=== PATIENT | male | born 1960 | race Caucasian/White ===

== ENCOUNTER → 2018-03-15 | Outpatient (CLI) | payer OTHER ==
[2018-03-15 15:34] LABS: Alanine Aminotransfer (ALT/SGP 61 U/L (12-78); Albumin, Blood 3.4 g/dL (3.4-5.0); Alk Phos 56 U/L (50-136); Anion Gap 11 mmol/L (6-16); Aspartate Aminotrans (AST/SGOT 20 U/L (12-37); Bilirubin, Total 0.4 mg/dL (0.1-1.0); Blood Urea Nitrogen 28 mg/dL (8-24); Bun/Creatinine Ratio 31.5 (12.0-20.0); CO2, Blood 24 mmol/L (21-32); Calcium, Blood 8.7 mg/dL (8.5-10.1); Chloride, Blood 105 mmol/L (98-108); Creatinine, Blood 0.89 mg/dL (0.60-1.20); Globulin, Blood 3.4 g/dL (2.2-4.0); Glomerular Filtration Rate >60 (60-); Glucose, Blood 111 mg/dL (70-99); Potassium, Blood 4.4 mmol/L (3.5-5.5); Sodium, Blood 140 mmol/L (136-145); Total Protein, Blood 6.8 g/dL (6.4-8.2)
== END | disposition home or self-care (01) ==
LOC: LAB 14:01 → LAB SHORT 14:01
PROVIDERS: Internal Medicine Hematology & Oncology
DX: C76.0 Malignant neoplasm of head, face and neck (principal)
CPT/HCPCS: 80053

== ENCOUNTER → 2018-06-19 | Outpatient (CLI) | payer BC | LOC: LAB 16:52 → LAB SHORT 16:52 | DX: R30.0 Dysuria (principal) | CPT/HCPCS: 87086 ==

== ENCOUNTER 2018-07-04 10:50 | Emergency (ER) | payer BC ==
[~2018-07-04] VITALS: Ht 180.3 cm; Wt 108.9 kg
[2018-07-04 11:52] LABS: BASOPHILS ABSOLUTE AUTO 0.02 K/mm3 (0.00-0.23); BASOPHILS PERCENT AUTO 0 % (0-2); EOSINOPHILS ABSOLUTE AUTO 0.14 K/mm3 (0.00-0.68); EOSINOPHILS PERCENT AUTO 1 % (0-6); Hematocrit 42.8 % (37.0-53.0); IMMATURE GRAN ABSOLUTE AUTO 0.09 K/mm3 (0.00-0.10); IMMATURE GRAN PERCENT AUTO 1 % (0-1); LYMPHOCYTES ABSOLUTE AUTO 1.86 K/mm3 (0.84-5.20); LYMPHOCYTES PERCENT AUTO 16 % (21-46); MONOCYTES PERCENT AUTO 6 % (4-13); Mean Corpuscular HGB 32.1 pg (26.0-34.0); Mean Corpuscular HGB Conc 32.7 g/dL (31.5-36.5); Mean Corpuscular Volume 98 fL (80-100); Mean Platelet Volume 11.1 fL (9.1-12.4); NEUTROPHILS ABSOLUTE AUTO 8.58 K/mm3 (1.96-9.15); NEUTROPHILS PERCENT AUTO 75 % (41-73); Platelet Count 204 K/mm3 (150-400); RDW Coefficient Variation 13.5 % (11.7-14.2); RDW Standard Deviation 48.9 fL (35.1-46.3); Red Blood Cell Count 4.36 M/mm3 (4.30-5.90); White Blood Cell Count 11.39 K/mm3 (4.00-11.30)
[2018-07-04 12:09] LABS: Alanine Aminotransfer (ALT/SGP 51 U/L (12-78); Albumin, Blood 3.2 g/dL (3.4-5.0); Albumin/Globulin Ratio 0.9 (0.8-1.8); Alk Phos 67 U/L (50-136); Anion Gap 7 mmol/L (6-16); Aspartate Aminotrans (AST/SGOT 26 U/L (12-37); Bilirubin, Total 0.4 mg/dL (0.1-1.0); Blood Urea Nitrogen 16 mg/dL (8-24); Bun/Creatinine Ratio 14.2 (12.0-20.0); CO2, Blood 27 mmol/L (21-32); Calcium, Blood 8.9 mg/dL (8.5-10.1); Chloride, Blood 107 mmol/L (98-108); Creatinine, Blood 1.13 mg/dL (0.60-1.20); Globulin, Blood 3.7 g/dL (2.2-4.0); Glomerular Filtration Rate >60 (60-); Glucose, Blood 90 mg/dL (70-99); Potassium, Blood 3.8 mmol/L (3.5-5.5); Sodium, Blood 141 mmol/L (136-145); Total Protein, Blood 6.9 g/dL (6.4-8.2)
== END 2018-07-04 15:24 | disposition left against medical advice (07) ==
LOC: ER 10:50
PROVIDERS: Physician Assistant
DX: Z53.21 Procedure and treatment not carried out due to patient leaving prior to being seen by health care provider (principal)
CPT/HCPCS: 36415; 71046; 80053; 85025

== ENCOUNTER → 2018-08-09 | Outpatient (CLI) | payer BC ==
[~2018-08-09] MED LIST: CIPR500 PO; GABA100 PO; Hydrocodone-Ap1 EA23 PO; LISI20 PO; Sulfamethoxazo1 EAC4 PO; TRAM50 PO
== END | disposition home or self-care (01) ==
LOC: LAB SHORT 10:00 → LAB 10:00 → LAB FUT 08-05 17:00 → EDSTATUS 08-05 17:00
DX: C71.9 Malignant neoplasm of brain, unspecified (principal); R42 Dizziness and giddiness
CPT/HCPCS: 87493

== ENCOUNTER → 2018-08-12 | Outpatient (CLI) | payer BC ==
[2018-08-12 18:13] LABS: Source, Urine Voided
[2018-08-12 18:33] LABS: Appearance, Urine Cloudy (Clear); Bilirubin, Urine Neg (Neg); Blood, Urine 4+ (Neg); Color, Urine Yellow (P-Yellow); Glucose Qualitative, Urine Neg (Neg); Ketones, Urine 1+ (Neg); Leukocyte Esterase, Urine 1+ (Neg); Nitrite, Urine Neg (Neg); Protein, Urine 3+ (Neg); Urobilinogen, Urine 1+ (Normal)
[2018-08-12 19:04] LABS: Amorphous Heavy (0-Heavy); Bacteria Few /hpf; Mucus Mod (0-Heavy); Red Blood Cells, Urine 50-100 /hpf (0-2); Squamous Epithelial Cells Mod /hpf (Few); White Blood Cells, Urine 25-50 /hpf (0-5)
== END | disposition home or self-care (01) ==
LOC: LAB 15:30 → LAB SHORT 15:30
PROVIDERS: Internal Medicine Hematology & Oncology
DX: R31.9 Hematuria, unspecified (principal)
CPT/HCPCS: 81001

== ENCOUNTER → 2018-09-15 | Outpatient (CLI) | payer BC ==
[~2018-09-15] MED LIST changes: +BUME2 PO; +DEXA4 PO; +OXYC5 PO; +POTA10T PO; +Prinivil10 MG PO
[2018-09-15 19:26] LABS: Alanine Aminotransfer (ALT/SGP 76 U/L (12-78); Albumin, Blood 2.9 g/dL (3.4-5.0); Albumin/Globulin Ratio 0.9 (0.8-1.8); Alk Phos 83 U/L (50-136); Anion Gap 6 mmol/L (6-16); Aspartate Aminotrans (AST/SGOT 26 U/L (12-37); Bilirubin, Total 0.5 mg/dL (0.1-1.0); Blood Urea Nitrogen 29 mg/dL (8-24); CO2, Blood 28 mmol/L (21-32); Calcium, Blood 8.7 mg/dL (8.5-10.1); Chloride, Blood 102 mmol/L (98-108); Creatinine, Blood 1.21 mg/dL (0.60-1.20); Globulin, Blood 3.2 g/dL (2.2-4.0); Glomerular Filtration Rate >60 (60-); Glucose, Blood 130 mg/dL (70-99); Potassium, Blood 3.8 mmol/L (3.5-5.5); Sodium, Blood 136 mmol/L (136-145); Total Protein, Blood 6.1 g/dL (6.4-8.2)
== END | disposition home or self-care (01) ==
LOC: LAB SHORT 18:04 → LAB 18:04
PROVIDERS: Internal Medicine Hematology & Oncology
DX: C76.0 Malignant neoplasm of head, face and neck (principal)
CPT/HCPCS: 80053

== ENCOUNTER 2018-09-17 18:58 | Inpatient (IN) | payer BC ==
[~2018-09-17] VITALS: Ht 180.3 cm; Wt 107.7 kg
[~2018-09-17 18:58] MED LIST changes: -BUME2 PO; -DEXA4 PO; -OXYC5 PO; -POTA10T PO; -Prinivil10 MG PO
[2018-09-17 19:33] LABS: BASOPHILS ABSOLUTE AUTO 0.05 K/mm3 (0.00-0.23); BASOPHILS PERCENT AUTO 0 % (0-2); EOSINOPHILS ABSOLUTE AUTO 0.01 K/mm3 (0.00-0.68); EOSINOPHILS PERCENT AUTO 0 % (0-6); Hematocrit 41.1 % (37.0-53.0); Hemoglobin 13.4 g/dL (13.5-17.5); IMMATURE GRAN ABSOLUTE AUTO 0.47 K/mm3 (0.00-0.10); IMMATURE GRAN PERCENT AUTO 2 % (0-1); LYMPHOCYTES ABSOLUTE AUTO 0.83 K/mm3 (0.84-5.20); LYMPHOCYTES PERCENT AUTO 4 % (21-46); MONOCYTES ABSOLUTE AUTO 0.36 K/mm3 (0.16-1.47); MONOCYTES PERCENT AUTO 2 % (4-13); Mean Corpuscular HGB 30.7 pg (26.0-34.0); Mean Corpuscular HGB Conc 32.6 g/dL (31.5-36.5); Mean Corpuscular Volume 94 fL (80-100); Mean Platelet Volume 11.3 fL (9.1-12.4); NEUTROPHILS ABSOLUTE AUTO 19.27 K/mm3 (1.96-9.15); NEUTROPHILS PERCENT AUTO 92 % (41-73); NRBC ABSOLUTE 0.04 K/mm3 (0.00-0.02); NRBC Auto 0.2 /100 WBC (0.0-0.2); Platelet Count 165 K/mm3 (150-400); RDW Coefficient Variation 16.8 % (11.7-14.2); Red Blood Cell Count 4.37 M/mm3 (4.30-5.90); White Blood Cell Count 20.99 K/mm3 (4.00-11.30)
[2018-09-17 19:55] LABS: Alanine Aminotransfer (ALT/SGP 59 U/L (12-78); Albumin, Blood 2.6 g/dL (3.4-5.0); Albumin/Globulin Ratio 0.6 (0.8-1.8); Alk Phos 93 U/L (50-136); Anion Gap 8 mmol/L (6-16); Aspartate Aminotrans (AST/SGOT 26 U/L (12-37); Bilirubin, Total 0.8 mg/dL (0.1-1.0); Blood Urea Nitrogen 21 mg/dL (8-24); Bun/Creatinine Ratio 15.6 (12.0-20.0); CO2, Blood 30 mmol/L (21-32); Calcium, Blood 10.2 mg/dL (8.5-10.1); Chloride, Blood 92 mmol/L (98-108); Creatinine, Blood 1.35 mg/dL (0.60-1.20); Globulin, Blood 4.7 g/dL (2.2-4.0); Glomerular Filtration Rate 57 (60-); Glucose, Blood 62 mg/dL (70-99); Sodium, Blood 130 mmol/L (136-145); Total Protein, Blood 7.3 g/dL (6.4-8.2); Troponin I <0.015 ng/mL (0.000-0.040)
[2018-09-17] MEDS ORDERED: POTA10T PO (20:03)
[2018-09-17] MEDS ORDERED: Prinivil10 MG PO (20:03)
[2018-09-17] MEDS ORDERED: BUME2 PO (20:03)
[2018-09-17] MEDS ORDERED: TRAM50 PO (20:04)
[2018-09-17] MEDS ORDERED: DEXA4 PO (20:04)
--- NOTE | 2018-09-17 23:45 | NUR ---
ASSUMPTION OF CARE: Pt arrived to the ICU @ 2335. Pt is alert and oriented with VSS, O2 93-94% on room air and HR sinus tach @ 101-112 and systolic BP of 173. Pt able to transfer self from ED bed to ICU bed. Noticable redness and edema to right leg extending from mid thigh to foot (See pictures). Leg is warm and painful to touch with blanching present. Edema noted to lower left leg. Peripheral IV x1 to RAC infusing NS and vanco. Diffuse bruising noted bilaterally to upper extremities and abdomen.
[2018-09-18] MEDS ORDERED: OXYC5 PO (00:05)
[2018-09-18 00:34] LABS: PCO2 Arterial 43.9 mmHg (35-45); PO2 Arterial 66.5 mmHg (80-100); pH Blood Arterial 7.44 (7.35-7.45)
[2018-09-18 00:59] LABS: Source, Urine Clean Catch
[2018-09-18 01:03] LABS: Appearance, Urine Hazy (Clear); Bilirubin, Urine Neg (Neg); Blood, Urine 5+ (Neg); Color, Urine Yellow (P-Yellow); Glucose Qualitative, Urine Neg (Neg); Ketones, Urine Neg (Neg); Leukocyte Esterase, Urine 2+ (Neg); Nitrite, Urine Pos (Neg); Protein, Urine 3+ (Neg); Specific Gravity, Urine 1.015 (1.003-1.022); Urobilinogen, Urine NORM (Normal); pH, Urine 6.5 (5.0-8.0)
[2018-09-18 01:10] LABS: Bacteria Many /hpf; Red Blood Cells, Urine 0-2 /hpf (0-2); Spermatozoa Rare /hpf; Squamous Epithelial Cells Not Seen /hpf (Few); White Blood Cells, Urine 50-100 /hpf (0-5)
[2018-09-18 01:11] LABS: Hyaline Casts 0-2 /lpf (0-2)
[2018-09-18 01:25] LABS: Creatinine, Urine Random 86.5 mg/dL (27.00-270.00)
[2018-09-18 04:45] LABS: International Normalized Ratio 1.01; Prothrombin Time Results 10.7 Sec (9.7-11.5)
[2018-09-18 04:48] LABS: Alanine Aminotransfer (ALT/SGP 45 U/L (12-78); Albumin/Globulin Ratio 0.5 (0.8-1.8); Alk Phos 77 U/L (50-136); Anion Gap 7 mmol/L (6-16); Aspartate Aminotrans (AST/SGOT 24 U/L (12-37); Bilirubin, Total 0.7 mg/dL (0.1-1.0); Blood Urea Nitrogen 19 mg/dL (8-24); Bun/Creatinine Ratio 19.6 (12.0-20.0); CO2, Blood 29 mmol/L (21-32); Calcium, Blood 8.7 mg/dL (8.5-10.1); Chloride, Blood 100 mmol/L (98-108); Creatinine, Blood 0.97 mg/dL (0.60-1.20); Globulin, Blood 3.7 g/dL (2.2-4.0); Glomerular Filtration Rate >60 (60-); Glucose, Blood 77 mg/dL (70-99); Potassium, Blood 3.3 mmol/L (3.5-5.5); Sodium, Blood 136 mmol/L (136-145); Total Protein, Blood 5.7 g/dL (6.4-8.2)
[2018-09-18 04:55] LABS: BASOPHILS ABSOLUTE AUTO 0.05 K/mm3 (0.00-0.23); BASOPHILS PERCENT AUTO 0 % (0-2); EOSINOPHILS ABSOLUTE AUTO 0.01 K/mm3 (0.00-0.68); EOSINOPHILS PERCENT AUTO 0 % (0-6); Hematocrit 34.9 % (37.0-53.0); Hemoglobin 11.3 g/dL (13.5-17.5); IMMATURE GRAN ABSOLUTE AUTO 0.69 K/mm3 (0.00-0.10); IMMATURE GRAN PERCENT AUTO 4 % (0-1); LYMPHOCYTES ABSOLUTE AUTO 0.67 K/mm3 (0.84-5.20); LYMPHOCYTES PERCENT AUTO 4 % (21-46); MONOCYTES ABSOLUTE AUTO 0.39 K/mm3 (0.16-1.47); MONOCYTES PERCENT AUTO 2 % (4-13); Mean Corpuscular HGB Conc 32.4 g/dL (31.5-36.5); Mean Corpuscular Volume 96 fL (80-100); NEUTROPHILS ABSOLUTE AUTO 17.22 K/mm3 (1.96-9.15); NEUTROPHILS PERCENT AUTO 91 % (41-73); NRBC ABSOLUTE 0.02 K/mm3 (0.00-0.02); NRBC Auto 0.1 /100 WBC (0.0-0.2); RDW Coefficient Variation 16.9 % (11.7-14.2); RDW Standard Deviation 59.4 fL (35.1-46.3); Red Blood Cell Count 3.64 M/mm3 (4.30-5.90); White Blood Cell Count 19.03 K/mm3 (4.00-11.30)
[2018-09-18 04:56] LABS: Mean Platelet Volume 11.6 fL (9.1-12.4); Platelet Count 113 K/mm3 (150-400)
[2018-09-18 05:24] LABS: Magnesium, Blood 1.9 mg/dL (1.6-2.4); Phosphorus, Blood 2.9 mg/dL (2.5-4.9)
--- NOTE | 2018-09-18 06:12 | NUR ---
SHIFT SUMMARY: Pt resting throughout night, arouses easily. Heart rate and rhythm remain sinus tach 100-110 with frequent PAC's and brief runs of SVT. Lower extremities remain unchanged with redness and edema to right leg and edema to left lower leg, photos on file in pts chart. Peripheral IV x2 remain patent and intact. Call placed to Dr. Baker at 0550 regarding pts potassium of 3.3 and heart rate/rhythm changes. Dr. Hilliard ordered 20 MEQ Potassium Chloride IV x1 and 5 mg metoprolol IV PRN. IV metoprolol has not been indicated as pt has not sustained an SVT rhythm.
--- NOTE | 2018-09-18 09:46 | NUR ---
PT AWAKE AND ALERT THIS AM AT 0720. PT C/O HEADACHE 6/10. PT STATES THIS IS CHRONIC D/T BRAIN TUMOR AND SALINA HAS PAIN LESS THAN 4-6/10. PT STATES RIGHT LEG PAIN IS AT A 0 UNLESS LEG IS MOVED, WITH MOVEMENT LEG PAIN IS 10/10. RIGHT LEG IS RED, WARM, SWOLLEN, PAINFUL TO THE TOUCH, AND WEEPING. LEG ASSESSED WITH NIGHT RN AT 0710. RIGHT LEG ELEVATED ON PILLOW. 1+ PULSES TO RIGHT DP/PT PRESENT. PT'S AT BEDSIDE. PT W SOME NAUSEA AND BELCHING AFTER BREAKFAST; ZOFRAN GIVEN. PT 1 PERSON ASSIST TO TOILET. PT WEAK AND UNSTEADY; PARTIALLY DUE TO SEVERE PAIN WITH MOVEMENT TO RIGHT LEG AND FOOT. PT IN SINUS TACH, BP SLIGHTLY HTN, SATS 96-98% ON RA. POWERGLIDE PLACED TO HEBER; PT TOLERATED WELL.
--- NOTE | 2018-09-18 10:54 | NUR ---
PT DRINKS APPROX 6 BEERS/DAY. PT LAST DRANK TWO DAYS AGO. HE STATES HE HAS NEVER EXPERIENCED SEVERE WITHDRAWALS. CIWA SCORE IS 0. PT EDUCATED ON WITHDRAWAL S/S, AND TO NOTIFY RN IF HE STARTS EXPERIENCES ANY. WILL MONITOR CIWA
--- NOTE | 2018-09-18 11:47 | NUR ---
echocardiogram completed
--- NOTE | 2018-09-18 14:24 | NUR ---
LEG REMAINS UNCHANGED AND ELEVATED ON PILLOW. PULSES REMAIN A FAINT +1. GOOD CAP REFILL. PT C/O CHRONIC HEADACHE PAIN 10/17, AND AN "ACHE" TO RIGHT LEG WITH PAIN COMPLAINTS ONLY W MOVEMENT. FENT 25MCG GIVEN. PT HYPERTENSIVE W SBP 160-[address] HENDERSONTRATE CALLED; WILL BE HERE SHORTLY TO SEE PT. PT HAS SLEPT FROM APPOX. 10-1430.
--- NOTE | 2018-09-18 16:19 | NUR ---
DR HENDERSONTRATE IN TO SEE PT. PAIN MEDS CHANGED TO DIALUDID, GIVEN W BETTER RESULTS. HYDRALAZINE IV PRN FOR HTN. PT NOW MEDICAL FLOOR STATUS NO TELE.
--- NOTE | 2018-09-18 16:39 | NUR ---
REPORT GIVEN TO MEDICAL FLOOR RN.
--- NOTE | 2018-09-18 18:25 | NUR ---
PT ARRIVED TO ROOM AND SETTLED IN TO BED AFTER BEING TRANSFERRED BY SLIDE SHEET AT 1705. RLE VERY SWOLLEN AND RED. AT BEDSIDE. ATE SUPPER WITH NO PROBLEM. WILL REPORT TO ONCOMING SHIFT.
--- NOTE | 2018-09-19 06:44 | NUR ---
SHIFT SUMMARY PT IS A 57 Y/O MALE, ADMITTED FOR SEPSIS R/T CELLULITIS IN HIS RLE. THE PT REPORTED PAIN IN HIS LEG, WELL A CHRONIC HEADACHE, FOR WHICH HE WAS MEDICATED WITH DILAUDID X 1 AND ULTRAM X 1. HE ALSO REPORTED SOME MILD NAUSEA DURING THE NIGHT, WHICH WAS RELIEVED WITH ZOFRAN. NO COMPLAINTS OF SOB. PT SLEPT WELL THROUGH THE NIGHT. VITALS REMAINED STABLE. NO OTHER ACUTE CHANGES IN PT CONDITION NOTED. WILL CONTINUE TO MONITOR AND TREAT PER EMAR UNTIL HAND OFF TO DAY SHIFT.
[2018-09-19 07:39] LABS: Hematocrit 34.3 % (37.0-53.0); Hemoglobin 10.8 g/dL (13.5-17.5); Mean Corpuscular HGB 29.9 pg (26.0-34.0); Mean Corpuscular HGB Conc 31.5 g/dL (31.5-36.5); Mean Corpuscular Volume 95 fL (80-100); Mean Platelet Volume 11.1 fL (9.1-12.4); NRBC ABSOLUTE 0.02 K/mm3 (0.00-0.02); NRBC Auto 0.1 /100 WBC (0.0-0.2); Platelet Count 132 K/mm3 (150-400); RDW Coefficient Variation 16.8 % (11.7-14.2); RDW Standard Deviation 58.6 fL (35.1-46.3); Red Blood Cell Count 3.61 M/mm3 (4.30-5.90); White Blood Cell Count 18.94 K/mm3 (4.00-11.30)
[2018-09-19 07:49] LABS: Alanine Aminotransfer (ALT/SGP 41 U/L (12-78); Albumin, Blood 1.7 g/dL (3.4-5.0); Albumin/Globulin Ratio 0.4 (0.8-1.8); Alk Phos 92 U/L (50-136); Anion Gap 6 mmol/L (6-16); Aspartate Aminotrans (AST/SGOT 23 U/L (12-37); Bilirubin, Total 0.4 mg/dL (0.1-1.0); Blood Urea Nitrogen 16 mg/dL (8-24); Bun/Creatinine Ratio 17.2 (12.0-20.0); CO2, Blood 30 mmol/L (21-32); Calcium, Blood 8.8 mg/dL (8.5-10.1); Chloride, Blood 102 mmol/L (98-108); Creatinine, Blood 0.93 mg/dL (0.60-1.20); Glomerular Filtration Rate >60 (60-); Glucose, Blood 79 mg/dL (70-99); Potassium, Blood 3.5 mmol/L (3.5-5.5); Sodium, Blood 138 mmol/L (136-145); Total Protein, Blood 5.7 g/dL (6.4-8.2)
[2018-09-19 09:06] LABS: BAND PERCENT MAN 8 % (0-8); BASOPHILS PERCENT MAN 0 % (0-2); EOSINOPHILS PERCENT MAN 0 % (0-6); LYMPHOCYTES PERCENT MAN 9 % (21-46); METAMYELOCYTE ABSOLUTE MAN 0.18 K/mm3 (0.00-0.00); METAMYELOCYTE PERCENT MAN 1 % (0-0); MONOCYTES ABSOLUTE MAN 0.56 K/mm3 (0.16-1.47); MONOCYTES PERCENT MAN 3 % (4-13); MYELOCYTE ABSOLUTE MAN 0.18 K/mm3 (0.00-0.00); MYELOCYTE PERCENT MAN 1 % (0-0); NEUTROPHILS ABSOLUTE MAN 16.28 K/mm3 (1.96-9.15); SEG NEUTROPHILS PERCENT MAN 78 % (41-73); TOTAL CELLS COUNTED 100
--- NOTE | 2018-09-19 18:37 | NUR ---
PT AOX4 AND COOPERATIVE OF ALL CARE. PT TREATED FOR PAIN DUE TO CELLULITUS PER EMAR. REDNESS CONTINUES TO STAY BEHIND BLACK LINES. R LEG STILL VERY RED MOIST AND HOT TO THE TOUCH. PT IS A TWO PERSON TRANSFER DUE TO HIS PAIN IN R LEG. PT PLEASANT IN ROOM AND NO DISTRESS NOTED AT THIS TIME. GIVEN NAUSEA MEDICATION PER EMAR. WILL CONTINUE TO MONITOR.
[2018-09-19 21:07] LABS: Vancomycin, Trough 28.2 ug/mL (5.0-10.0)
[2018-09-20 05:56] LABS: Hematocrit 33.8 % (37.0-53.0); Hemoglobin 10.9 g/dL (13.5-17.5); Mean Corpuscular HGB 30.6 pg (26.0-34.0); Mean Corpuscular HGB Conc 32.2 g/dL (31.5-36.5); Mean Corpuscular Volume 95 fL (80-100); Platelet Count 146 K/mm3 (150-400); Red Blood Cell Count 3.56 M/mm3 (4.30-5.90); White Blood Cell Count 15.44 K/mm3 (4.00-11.30)
[2018-09-20 06:14] LABS: Alanine Aminotransfer (ALT/SGP 38 U/L (12-78); Albumin, Blood 1.5 g/dL (3.4-5.0); Albumin/Globulin Ratio 0.4 (0.8-1.8); Alk Phos 94 U/L (50-136); Anion Gap 8 mmol/L (6-16); Aspartate Aminotrans (AST/SGOT 20 U/L (12-37); Bilirubin, Total 0.4 mg/dL (0.1-1.0); Blood Urea Nitrogen 14 mg/dL (8-24); Bun/Creatinine Ratio 13.5 (12.0-20.0); CO2, Blood 28 mmol/L (21-32); Calcium, Blood 8.7 mg/dL (8.5-10.1); Chloride, Blood 103 mmol/L (98-108); Creatinine, Blood 1.04 mg/dL (0.60-1.20); Globulin, Blood 3.9 g/dL (2.2-4.0); Glomerular Filtration Rate >60 (60-); Glucose, Blood 82 mg/dL (70-99); Potassium, Blood 3.3 mmol/L (3.5-5.5); Sodium, Blood 139 mmol/L (136-145); Total Protein, Blood 5.4 g/dL (6.4-8.2); Vancomycin, Random 13.7 ug/mL
[2018-09-20 06:20] LABS: BAND PERCENT MAN 5 % (0-8); BASOPHILS PERCENT MAN 0 % (0-2); EOSINOPHILS PERCENT MAN 0 % (0-6); LYMPHOCYTES ABSOLUTE MAN 1.38 K/mm3 (0.84-5.20); LYMPHOCYTES PERCENT MAN 9 % (21-46); METAMYELOCYTE ABSOLUTE MAN 0.61 K/mm3 (0.00-0.00); METAMYELOCYTE PERCENT MAN 4 % (0-0); MONOCYTES ABSOLUTE MAN 0.92 K/mm3 (0.16-1.47); MONOCYTES PERCENT MAN 6 % (4-13); MYELOCYTE ABSOLUTE MAN 0.15 K/mm3 (0.00-0.00); MYELOCYTE PERCENT MAN 1 % (0-0); NEUTROPHILS ABSOLUTE MAN 12.35 K/mm3 (1.96-9.15); SEG NEUTROPHILS PERCENT MAN 75 % (41-73); TOTAL CELLS COUNTED 100
--- NOTE | 2018-09-20 06:44 | NUR ---
09/20/18 0600 SLEEPING WELL AFTER PAIN MED. VITALS STABLE AND REMAINS AFEBRILE. RN UNABLE TO DRAW BLOOD THIS AM FOR LABWORK AND LAB CALLED TO DO. RT LEG ELEVATED ON PILLOW.
--- NOTE | 2018-09-20 12:00 | NUR ---
STUDENT HAD PT CARE TODAY. PLEASE REFER TO STUDENT NOTES FOR DISCHARGE SUMMARY.
--- NOTE | 2018-09-20 17:45 | NUR ---
PT AOX4 AND COOPERATIVE OF ALL CARE. PT DOING WELL TODAY.TREATED FOR PAIN PER EMAR. R LEG CELLULITUS WAS STILL VERY RED AND WARM, BUT NOT MOIST TODAY. PT WAS ABLE TO TAKE A LOT OF NAPS AND REPORTED LESS PAIN. PT CALL APPRORIATELY AND CONTINUES TO BE A TWO PERSON TRANSFER AT THIS TIME DUE TO R FOOT PAIN. NO DISTRESS NOTED AT THIS TIME.
--- NOTE | 2018-09-20 18:40 | NUR ---
PT HAD A SUDDEN EPISODE OF AGGITAION. PT GETTING SHORT WITH AND FRUSTRAED. TREATED PER EMAR.
[2018-09-21 05:27] LABS: Hemoglobin 10.7 g/dL (13.5-17.5); Mean Corpuscular HGB 30.1 pg (26.0-34.0); Mean Corpuscular HGB Conc 31.5 g/dL (31.5-36.5); Mean Corpuscular Volume 96 fL (80-100); Mean Platelet Volume 10.6 fL (9.1-12.4); Platelet Count 174 K/mm3 (150-400); Red Blood Cell Count 3.55 M/mm3 (4.30-5.90)
[2018-09-21 05:46] LABS: Anion Gap 7 mmol/L (6-16); Blood Urea Nitrogen 13 mg/dL (8-24); Bun/Creatinine Ratio 12.6 (12.0-20.0); CO2, Blood 28 mmol/L (21-32); Calcium, Blood 8.6 mg/dL (8.5-10.1); Chloride, Blood 103 mmol/L (98-108); Creatinine, Blood 1.03 mg/dL (0.60-1.20); Glomerular Filtration Rate >60 (60-); Glucose, Blood 81 mg/dL (70-99); Potassium, Blood 3.6 mmol/L (3.5-5.5); Sodium, Blood 138 mmol/L (136-145)
[2018-09-21 05:53] LABS: BAND PERCENT MAN 2 % (0-8); BASOPHILS PERCENT MAN 0 % (0-2); EOSINOPHILS PERCENT MAN 0 % (0-6); LYMPHOCYTES ABSOLUTE MAN 1.76 K/mm3 (0.84-5.20); LYMPHOCYTES PERCENT MAN 14 % (21-46); METAMYELOCYTE ABSOLUTE MAN 0.12 K/mm3 (0.00-0.00); METAMYELOCYTE PERCENT MAN 1 % (0-0); MONOCYTES ABSOLUTE MAN 1.13 K/mm3 (0.16-1.47); MONOCYTES PERCENT MAN 9 % (4-13); MYELOCYTE ABSOLUTE MAN 0.25 K/mm3 (0.00-0.00); MYELOCYTE PERCENT MAN 2 % (0-0); NEUTROPHILS ABSOLUTE MAN 9.32 K/mm3 (1.96-9.15); SEG NEUTROPHILS PERCENT MAN 72 % (41-73); TOTAL CELLS COUNTED 100
--- NOTE | 2018-09-21 07:35 | NUR ---
requesting call for SS to determine status as to returning home/snf, call light in reach, saline locked, room air, walking rounds completed with day staff
--- NOTE | 2018-09-21 16:00 | NUR ---
SUMMARY PT IS A/O X4. THIS AM HE WAS SOMEWHAT DISTRAUGHT D/T POOR PAIN CONTROL, 10/10 L HIP PAIN WITH DISCOMFORT R LEG CELLULITIS. DR DIANA IN TO SEE HIM, DISCONTINUE IV DILAUDID & ORDER IV TORADOL. STATE TO GIVE ULTRAM FIRST FOLLOWED BY TORADOL. THIS AFTERNOON PT STATE BETTER PAIN CONTROL, HE APPEARS COMFORTABLE IN BED HOWEVER STATE PAIN LEVEL 8/10 L HIP. HE ATTEMPTED TO GET OOB TO CHAIR THIS AM @ DR DIANA REQUEST HOWEVER STATE TOO PAINFUL & HAS STAYED IN BED TODAY. RLE CONTINUES RED, SWOLLEN 4+, ELEVATING WITH PILLOWS. REDNESS HAS RECEDED INSIDE MAPPED AREA SOMEWHAT. SOCSERV, L[address] [place] STATE SHE HAD CONVERSATION WITH PT'S TODAY, DISCUSSED CONCERNS R/T TO D/C, PT/OT NAOMIAL ORDERED. VSS.
--- NOTE | 2018-09-22 07:26 | NUR ---
a+o, infusing, room air, walking rounds completed with day staff, call light in reach
--- NOTE | 2018-09-22 15:50 | NUR ---
SUMMARY PT IS A/O X4, GENERALLY PLEASANT HOWEVER MULT HEALTH ISSUES, SOMEWHAT DEPRESSED. HE CONTINUES TO HAVE SIGNIFICANT L HIP PAIN. THIS AM OUT FOR L HIP XRAY. DR DIANA IN TO REVIEW WITH HIM STATE NEED FOR REPLACEMENT SURG IN FUTURE. DR DOMINGO GRIFFITH FOR PAIN CONTROL. 1ST DOSE GIVEN APPROX 1400, TORADOL GIVEN @ 1430. PT STATE BETTER RELIEF, ABLE TO PARTICIPATE WITH PT/OT, UP TO CHAIR FOR APPROX 20 MIN THEN ABLE TO INDEPENDANTLY GO BACK TO BED W/O CALLING FOR ASSIST. STATE HOPEFUL FOR CONTINUING IMPROVEMENT. R LEG CELLULITIS CONTINUES HOWEVER REDNESS HAS RECEDED WITHIN MAPPED BORDERS. 3-4+ EDEMA. LARGE BLISTERS ON BACK OF CALF, DR DIANA ASSESS. PLACED NAD & WRAPPED WITH KERLIX. PT ENCOURAGED TO ELEVATE LEG WHILE IN BED. LANDING WORKER OFFER BEDBATH MULT X'S TODAY HOWEVER PT HAS DECLINED. STATE SHE WILL BE BACK THIS AFTERNOON & ASSIST HIM WITH BATH. LINENS CHANGED WHILE PT UP IN CHAIR. IV ANTIBX CONTINUE. VSS.
--- NOTE | 2018-09-22 16:17 | NUR ---
Initial Visit: Palliative Care Consult for AD/POLST and Advanced Care Planning. Pt is A&O and reports tolerable 6/10 pain in his left hip and right lower extremity. He also reports continuous headaches. Pt reports call pain is currently managed. Engaged in therapeutic conversation regarding Advanced Care Planning. Pt lives at home with his who is an RN, step son who is a caregiver, and brother in law. Pt is of Catholic ingrid but does not practice any particular denomination. Pt reports at baseline he is independent with his ADL's. Currently due to his infection in his right lower extremity and worsening left hip he is requiring mild assistance with bathing and dressing. He reports significant weakness and low energy. Educated Pt on the importance of advanced care planning and having conversations with his PCP and specialists regarding his health including his cancer in order to plan accordingly. Educated Pt the possibility of decline and the need for extra assistance with care needs. Pt reports adequate support at home with his family. Discussed AD/POLST with Pt. Pt states thinking he may have completed an advanced directive when he was in [place]. Pt is agreeable to discuss AD/POLST further. Educated on life sustaining measures with each section to complete. Pt reports that he will check with his and complete if one does not already exist. Pt reports no other concerns at this time. Spoke with Pt's nurse Tim and he reports no concerns at this time. Palliative Care will remain available.
--- NOTE | 2018-09-23 07:16 | NUR ---
a+o, mediated for pain, call light in reach, saline locked, room air, walking rounds completed with day staff, hip remains painful, R leg less red and painful
[2018-09-23] MEDS ORDERED: FOLI1 PO (11:06)
[2018-09-23] MEDS ORDERED: HYDR1TAB94 PO (11:07)
[2018-09-23] MEDS ORDERED: Vsl#3 Capsule1 EACH PO (11:08)
[2018-09-23] MEDS ORDERED: METO50 PO (11:09)
[2018-09-23] MEDS ORDERED: NICO21TP TOP (11:10)
[2018-09-23] MEDS ORDERED: B-1100 MG PO (11:10)
[2018-09-23] MEDS ORDERED: CEPH500 PO (11:11)
[2018-09-23] MEDS ORDERED: DOCU100 PO (11:18)
--- NOTE | 2018-09-23 18:10 | NUR ---
SHIFT SUMMARY- PT AXO X4. PT C/O HEAD/HIP/GEN PAIN. MEDS GIVEN PER EMAR. PT C/O NAUSEA. MEDS GIVEN PER EMAR. PT DENIES SOB. RESP E/U ON RA. PT REFUSED WORKING WITH OT. PT WORKED WITH PHYSICAL THERAPY TODAY. PT'S SPOUSE IN TO VISIT TODAY. PT WAITING FOR AUTHORIZATION FROM HIS INSURANCE TO D/C TO SNF. NO OTHER SIGNIFICANT CHANGES THIS SHIFT.
--- NOTE | 2018-09-24 06:20 | NUR ---
wif in to check, requested ativan, pt wants to leave home not ready, resovlved for the moment, call light in reach, cooperative with staff, a+o, leg less painful, remains red and tender, abx infusing, will continue to monitor and treat until provide walking rounds to day shift
--- NOTE | 2018-09-24 17:05 | NUR ---
SHIFT SUMMARY- PT SLEPT MOST OF THE SHIFT. POLICY LOAN CALCULATOR RN REPORTS PT IRRITABLE AND RECIEVED ATIVAN EARLY THIS AM. PT C/O HIP PAIN THIS AFTERNOON. MEDS GIVEN PER EMAR. PT DENIES SOB. RESP E/U ON RA. DENIES N/V. PT'S IN TO VISIT TODAY. PT STILL AWAITING AUTHORIZATION TO D/C TO SNF. PT REFUSED PHYSICAL THERAPY TODAY. REPORT GIVEN TO MARANDA RAE. NO OTHER SIGNIFICANT CHANGES THIS SHIFT.
--- NOTE | 2018-09-24 17:51 | NUR ---
RECEIVED HANDOFF FROM NURSE ARGUETA TAKING OVER CARE OF THIS PT FOR APPROXIMATELY 2 HOURS. NURSE ARGUETA GAVE PT HANDOFF. I'VE STUDIED THE PT'S CHARTS AND AM ASSUMING CARE UNTIL SHIFT CHANGE.
[2018-09-25 05:07] LABS: BASOPHILS ABSOLUTE AUTO 0.02 K/mm3 (0.00-0.23); BASOPHILS PERCENT AUTO 0 % (0-2); EOSINOPHILS ABSOLUTE AUTO 0.04 K/mm3 (0.00-0.68); EOSINOPHILS PERCENT AUTO 1 % (0-6); Hematocrit 26.3 % (37.0-53.0); Hemoglobin 8.4 g/dL (13.5-17.5); IMMATURE GRAN ABSOLUTE AUTO 0.36 K/mm3 (0.00-0.10); IMMATURE GRAN PERCENT AUTO 4 % (0-1); LYMPHOCYTES ABSOLUTE AUTO 1.82 K/mm3 (0.84-5.20); LYMPHOCYTES PERCENT AUTO 22 % (21-46); MONOCYTES ABSOLUTE AUTO 0.48 K/mm3 (0.16-1.47); MONOCYTES PERCENT AUTO 6 % (4-13); Mean Corpuscular HGB 30.9 pg (26.0-34.0); Mean Corpuscular HGB Conc 31.9 g/dL (31.5-36.5); Mean Corpuscular Volume 97 fL (80-100); Mean Platelet Volume 10.2 fL (9.1-12.4); NEUTROPHILS ABSOLUTE AUTO 5.67 K/mm3 (1.96-9.15); NEUTROPHILS PERCENT AUTO 68 % (41-73); Platelet Count 257 K/mm3 (150-400); RDW Coefficient Variation 16.5 % (11.7-14.2); RDW Standard Deviation 58.4 fL (35.1-46.3); Red Blood Cell Count 2.72 M/mm3 (4.30-5.90); White Blood Cell Count 8.39 K/mm3 (4.00-11.30)
[2018-09-25 05:29] LABS: Anion Gap 6 mmol/L (6-16); Blood Urea Nitrogen 23 mg/dL (8-24); Bun/Creatinine Ratio 24.3 (12.0-20.0); CO2, Blood 28 mmol/L (21-32); Calcium, Blood 8.3 mg/dL (8.5-10.1); Chloride, Blood 102 mmol/L (98-108); Creatinine, Blood 0.95 mg/dL (0.60-1.20); Glomerular Filtration Rate >60 (60-); Glucose, Blood 103 mg/dL (70-99); Potassium, Blood 4.2 mmol/L (3.5-5.5); Sodium, Blood 136 mmol/L (136-145)
--- NOTE | 2018-09-25 13:51 | NUR ---
SNF D/C: [facility] [place]. NOTIFIED THIS RN OF PT'S INSURANCE AUTH APPROVAL. NOTIFIED ANGE AT [facility] ADMISSIONS. ORDERS, MEDS, PASRR, AND AUTH LETTER FAXED TO BOTH [facility] AND [facility]. SCHEDULED TRANSPORT WITH [facility] WITH A TENTATIVE ORDER EDITOR TIME OF 1430. BEDSIDE RN JOANN AND PT'S MECCA NOTIFIED.
--- NOTE | 2018-09-25 15:27 | NUR ---
PATIENT DISCHARGE: PATIENT DISCHARGED/TRANSFERRED TO [facility] SNF THIS SHIFT. MEDICATION RECONCILIATION COMPLETED; MED LIST PROVIDED IN PACKET-TAKEN BY [facility] PERSONNEL. REPORT CALLED TO MARANDA GOMES, AT [facility]. PATIENT DEPARTED MEDICAL FLOOR AT 1500 VIA [facility].
== END 2018-09-25 14:56 | DRG 871 ==
LOC: ER 18:58 → ERHOLD 21:48 → MEDS 21:48 → ICUE 23:46 → MEDS 09-18 17:04 → ENPENDDIS 09-23 09:52 → EDPENDDIS 09-23 09:52 → MEDS 09-25 14:56
PROVIDERS: Emergency Medicine; Family Medicine; Internal Medicine; Nurse Practitioner Acute Care; ADMIT Internal Medicine
DX: A40.9 Streptococcal sepsis, unspecified (principal); G93.6 Cerebral edema; J96.01 Acute respiratory failure with hypoxia; L03.115 Cellulitis of right lower limb; N17.9 Acute kidney failure, unspecified; F10.239 Alcohol dependence with withdrawal, unspecified; R65.20 Severe sepsis without septic shock; Z85.841 Personal history of malignant neoplasm of brain; I10 Essential (primary) hypertension; Z92.3 Personal history of irradiation; F17.210 Nicotine dependence, cigarettes, uncomplicated; Z66 Do not resuscitate; E87.6 Hypokalemia; M16.12 Unilateral primary osteoarthritis, left hip; D63.8 Anemia in other chronic diseases classified elsewhere
CPT/HCPCS: 36415; 36600; 71046; 71260; 73502; 80048; 80053; 80202; 81001; 82550; 82570; 82803; 83605; 83735; 83880; 84100; 84484; 84540; 85025; 85610; 87040; 87086; 87147; 93005; 93010; 93306; 93971; 94760; 94762; 96361; 96374-59; 96375-59; 97110; 97116; 97162; 97166; 97530; 99285-25; A9270-GY; C1751; J0360; J0690; J1170; J1644; J1885; J2060; J2185; J2405; J2543; J3010; J3370; J3480; J7030; J7050; Q9967

== ENCOUNTER 2018-11-06 17:00 | Emergency (ER) | payer BC ==
[~2018-11-06] VITALS: Ht 180.3 cm; Wt 106.6 kg
[~2018-11-06 17:00] MED LIST changes: +B-1100 MG PO; +BUME2 PO; +CEPH500 PO; +DEXA4 PO; +DOCU100 PO; +FOLI1 PO; +HYDR1TAB94 PO; +METO50 PO; +NICO21TP TOP; +OXYC5 PO; +POTA10T PO; +Prinivil10 MG PO; +Vsl#3 Capsule1 EACH PO
[2018-11-06 18:04] LABS: Hematocrit 32.5 % (37.0-53.0); Mean Corpuscular HGB 29.8 pg (26.0-34.0); Mean Corpuscular HGB Conc 30.8 g/dL (31.5-36.5); Mean Corpuscular Volume 97 fL (80-100); Mean Platelet Volume 10.4 fL (9.1-12.4); NRBC ABSOLUTE 0.06 K/mm3 (0.00-0.02); NRBC Auto 0.4 /100 WBC (0.0-0.2); Platelet Count 447 K/mm3 (150-400); RDW Standard Deviation 64.5 fL (35.1-46.3); Red Blood Cell Count 3.36 M/mm3 (4.30-5.90); White Blood Cell Count 14.75 K/mm3 (4.00-11.30)
[2018-11-06 18:06] LABS: Source, Urine Clean Catch
[2018-11-06 18:16] LABS: Bilirubin, Urine Neg (Neg); Blood, Urine 5+ (Neg); Glucose Qualitative, Urine Neg (Neg); Ketones, Urine 1+ (Neg); Leukocyte Esterase, Urine 2+ (Neg); Nitrite, Urine Pos (Neg); Protein, Urine 3+ (Neg); Specific Gravity, Urine 1.025 (1.003-1.022); Urobilinogen, Urine 1+ (Normal)
[2018-11-06 18:26] LABS: Albumin, Blood 3.2 g/dL (3.4-5.0); Albumin/Globulin Ratio 0.9 (0.8-1.8); Bilirubin, Total 0.4 mg/dL (0.1-1.0); Bun/Creatinine Ratio 31.1 (12.0-20.0); Calcium, Blood 8.8 mg/dL (8.5-10.1); Creatinine, Blood 1.32 mg/dL (0.60-1.20); Globulin, Blood 3.5 g/dL (2.2-4.0); Potassium, Blood 4.3 mmol/L (3.5-5.5); Total Protein, Blood 6.7 g/dL (6.4-8.2)
[2018-11-06 18:28] LABS: Appearance, Urine Turbid (Clear); Color, Urine Red (P-Yellow)
[2018-11-06 18:30] LABS: Bacteria Few /hpf; Red Blood Cells, Urine 25-50 /hpf (0-2); Squamous Epithelial Cells Not Seen /hpf (Few)
[2018-11-06 18:35] LABS: BAND PERCENT MAN 1 % (0-8); BASOPHILS PERCENT MAN 0 % (0-2); EOSINOPHILS PERCENT MAN 0 % (0-6); LYMPHOCYTES ABSOLUTE MAN 0.88 K/mm3 (0.84-5.20); LYMPHOCYTES PERCENT MAN 6 % (21-46); METAMYELOCYTE ABSOLUTE MAN 0.29 K/mm3 (0.00-0.00); METAMYELOCYTE PERCENT MAN 2 % (0-0); MONOCYTES ABSOLUTE MAN 0.14 K/mm3 (0.16-1.47); MONOCYTES PERCENT MAN 1 % (4-13); MYELOCYTE ABSOLUTE MAN 0.44 K/mm3 (0.00-0.00); MYELOCYTE PERCENT MAN 3 % (0-0); NEUTROPHILS ABSOLUTE MAN 12.98 K/mm3 (1.96-9.15); SEG NEUTROPHILS PERCENT MAN 87 % (41-73); TOTAL CELLS COUNTED 100
[2018-11-06 20:21] LABS: Source, Urine Catheter
[2018-11-06 20:23] LABS: Bilirubin, Urine Neg (Neg); Blood, Urine 5+ (Neg); Glucose Qualitative, Urine Neg (Neg); Ketones, Urine Neg (Neg); Leukocyte Esterase, Urine 1+ (Neg); Nitrite, Urine Neg (Neg); Protein, Urine 3+ (Neg); Urobilinogen, Urine NORM (Normal)
[2018-11-06 20:26] LABS: Appearance, Urine Cloudy (Clear); Color, Urine Yellow (P-Yellow)
[2018-11-06 20:33] LABS: Red Blood Cells, Urine TNTC /hpf (0-2)
[2018-11-06 20:34] LABS: Bacteria Few /hpf; Squamous Epithelial Cells Not Seen /hpf (Few)
== END 2018-11-06 22:06 | disposition short-term general hospital (02) ==
LOC: ER 17:00
PROVIDERS: Emergency Medicine; Physician Assistant
DX: R33.9 Retention of urine, unspecified (principal); R31.9 Hematuria, unspecified; S32.019A Unspecified fracture of first lumbar vertebra, initial encounter for closed fracture; M87.9 Osteonecrosis, unspecified; N32.9 Bladder disorder, unspecified; X58.XXXA Exposure to other specified factors, initial encounter; Z88.2 Allergy status to sulfonamides; Z79.899 Other long term (current) drug therapy; F17.200 Nicotine dependence, unspecified, uncomplicated
CPT/HCPCS: 36415; 51702; 74176; 80053; 81001; 83605; 85025; 87040; 87086; 96365-59; 96375-59; 99285-25; J0696; J1170

== ENCOUNTER 2018-12-19 00:06 | Inpatient (IN) | payer BC ==
[~2018-12-19] VITALS: Ht 180.3 cm; Wt 106.2 kg
[2018-12-19 00:20] LABS: Calcium, Ionized (POC) 1.05 mmol/L (1.10-1.46); Chloride (POC) 101 mmol/L (98-108); Creatinine (POC) 1.4 mg/dL (0.8-1.3); Glucose (ISTAT POC) 216 mg/dL (70-99); Hemoglobin (POC) 6.8 g/dL (13.5-17.5); Potassium (POC) 3.4 mmol/L (3.5-5.5); Sodium (POC) 134 mmol/L (135-148); Total CO2 (POC) 19 mmol/L (21-32)
[2018-12-19 00:24] LABS: BASOPHILS ABSOLUTE AUTO 0.01 K/mm3 (0.00-0.23); BASOPHILS PERCENT AUTO 0 % (0-2); EOSINOPHILS ABSOLUTE AUTO 0.04 K/mm3 (0.00-0.68); EOSINOPHILS PERCENT AUTO 0 % (0-6); Hematocrit 23.1 % (37.0-53.0); Hemoglobin 6.8 g/dL (13.5-17.5); IMMATURE GRAN ABSOLUTE AUTO 0.73 K/mm3 (0.00-0.10); IMMATURE GRAN PERCENT AUTO 5 % (0-1); LYMPHOCYTES PERCENT AUTO 31 % (21-46); MONOCYTES ABSOLUTE AUTO 0.75 K/mm3 (0.16-1.47); MONOCYTES PERCENT AUTO 5 % (4-13); Mean Corpuscular HGB 29.3 pg (26.0-34.0); Mean Corpuscular HGB Conc 29.4 g/dL (31.5-36.5); Mean Corpuscular Volume 100 fL (80-100); Mean Platelet Volume 10.7 fL (9.1-12.4); NEUTROPHILS ABSOLUTE AUTO 8.22 K/mm3 (1.96-9.15); NEUTROPHILS PERCENT AUTO 59 % (41-73); NRBC ABSOLUTE 0.25 K/mm3 (0.00-0.02); NRBC Auto 1.8 /100 WBC (0.0-0.2); Platelet Count 285 K/mm3 (150-400); RDW Coefficient Variation 16.8 % (11.7-14.2); RDW Standard Deviation 60.8 fL (35.1-46.3); Red Blood Cell Count 2.32 M/mm3 (4.30-5.90); White Blood Cell Count 14.05 K/mm3 (4.00-11.30)
[2018-12-19 00:40] LABS: BASOPHILS PERCENT MAN 0 % (0-2); EOSINOPHILS PERCENT MAN 0 % (0-6); LYMPHOCYTES ABSOLUTE MAN 3.51 K/mm3 (0.84-5.20); LYMPHOCYTES PERCENT MAN 25 % (21-46); MONOCYTES ABSOLUTE MAN 0.56 K/mm3 (0.16-1.47); MONOCYTES PERCENT MAN 4 % (4-13); MYELOCYTE ABSOLUTE MAN 0.14 K/mm3 (0.00-0.00); MYELOCYTE PERCENT MAN 1 % (0-0); NEUTROPHILS ABSOLUTE MAN 9.83 K/mm3 (1.96-9.15); SEG NEUTROPHILS PERCENT MAN 70 % (41-73); TOTAL CELLS COUNTED 100
[2018-12-19 00:42] LABS: Albumin, Blood 2.1 g/dL (3.4-5.0); Albumin/Globulin Ratio 0.8 (0.8-1.8); Bilirubin, Total 0.2 mg/dL (0.1-1.0); Bun/Creatinine Ratio 33.8 (12.0-20.0); Creatinine, Blood 1.33 mg/dL (0.60-1.20); Globulin, Blood 2.6 g/dL (2.2-4.0); Potassium, Blood 3.5 mmol/L (3.5-5.5); Total Protein, Blood 4.7 g/dL (6.4-8.2)
[2018-12-19 00:48] LABS: International Normalized Ratio 0.94
[2018-12-19] MEDS ORDERED: Bumetanide2 MG PO (00:59)
[2018-12-19] MEDS ORDERED: Travatan Z5 ML BOTHEYES (01:00)
[2018-12-19] MEDS ORDERED: DEXA4 PO (01:00)
--- NOTE | 2018-12-19 03:56 | NUR ---
ASSUMED CARE PT ARRIVES TO ICU AT 0330 VIA STRETCHER. PT ALERT AND ORIENTED X 4, BUT TIRED/LETHARGIC. PT COMPLAINS OF PAIN IN HIS LEFT HIP. VITALS ARE STABLE. SLIGHTLY FLUSHED IN THE FACE. PT IS RESTING IN BED, FAMILY AT BEDSIDE.
[2018-12-19 04:47] LABS: BASOPHILS ABSOLUTE AUTO 0.02 K/mm3 (0.00-0.23); BASOPHILS PERCENT AUTO 0 % (0-2); EOSINOPHILS ABSOLUTE AUTO 0.03 K/mm3 (0.00-0.68); EOSINOPHILS PERCENT AUTO 0 % (0-6); Hematocrit 24.9 % (37.0-53.0); IMMATURE GRAN ABSOLUTE AUTO 0.67 K/mm3 (0.00-0.10); IMMATURE GRAN PERCENT AUTO 5 % (0-1); LYMPHOCYTES ABSOLUTE AUTO 1.94 K/mm3 (0.84-5.20); LYMPHOCYTES PERCENT AUTO 13 % (21-46); MONOCYTES PERCENT AUTO 6 % (4-13); Mean Corpuscular HGB 30.5 pg (26.0-34.0); Mean Corpuscular HGB Conc 32.1 g/dL (31.5-36.5); Mean Platelet Volume 10.3 fL (9.1-12.4); NEUTROPHILS ABSOLUTE AUTO 11.11 K/mm3 (1.96-9.15); NEUTROPHILS PERCENT AUTO 76 % (41-73); NRBC ABSOLUTE 0.17 K/mm3 (0.00-0.02); NRBC Auto 1.2 /100 WBC (0.0-0.2); Platelet Count 212 K/mm3 (150-400); RDW Coefficient Variation 15.9 % (11.7-14.2); RDW Standard Deviation 54.5 fL (35.1-46.3); Red Blood Cell Count 2.62 M/mm3 (4.30-5.90); White Blood Cell Count 14.67 K/mm3 (4.00-11.30)
[2018-12-19 04:52] LABS: Mean Corpuscular Volume 95 fL (80-100)
[2018-12-19 05:08] LABS: Alanine Aminotransfer (ALT/SGP 24 U/L (12-78); Albumin, Blood 2.3 g/dL (3.4-5.0); Albumin/Globulin Ratio 0.9 (0.8-1.8); Alk Phos 70 U/L (50-136); Anion Gap 7 mmol/L (6-16); Aspartate Aminotrans (AST/SGOT 13 U/L (12-37); Bilirubin, Total 0.9 mg/dL (0.1-1.0); Blood Urea Nitrogen 46 mg/dL (8-24); Bun/Creatinine Ratio 36.8 (12.0-20.0); CO2, Blood 27 mmol/L (21-32); Chloride, Blood 107 mmol/L (98-108); Creatinine, Blood 1.25 mg/dL (0.60-1.20); Globulin, Blood 2.6 g/dL (2.2-4.0); Glomerular Filtration Rate >60 (60-); Glucose, Blood 152 mg/dL (70-99); Potassium, Blood 3.9 mmol/L (3.5-5.5); Sodium, Blood 141 mmol/L (136-145); Total Protein, Blood 4.9 g/dL (6.4-8.2)
--- NOTE | 2018-12-19 05:47 | NUR ---
APNEIC EPISODE PT STARTED MAKING GRUNTING NOISES, THAT GOT LOUDER AND LOUDER. I WALKED INTO THE ROOM AND STARTED ASKING THE PT IF HE WAS OKAY. HE WOULD NOT RESPOND AT ALL, HIS EYES WERE OPEN BUT STARING STRAIGHT AHEAD AND NOT TRACKING. CONTINUED MAKING GRUNTING NOISES, AND THEN HE LOST ALL COLOR IN HIS HEAD, FACE, AND LIPS AND BECAME APNEIC. PERFORMED STERNAL RUB AND PALPATED FAINT PULSE IN HIS RIGHT FEMORAL ARTERY. PT STARTED BREATHING AGAIN SHORTLY AFTER. HE THEN STARTED RESPONDING TO US. HE WAS ABLE TO TELL US HE WAS AT THE HOSPITAL, HIS FULL NAME, AND WHY HE WAS HERE. HE COMPLAINED OF NAUSEA, AND WAS PASSING GAS BUT NO BM. HIS BLOOD PRESSURES DROPPED TO 74/53, THEN 91/54 - WE STARTED A 500cc BOLUS AND GAVE HIM ZOFRAN. I PLACED A CALL TO ELIUD AND HE ORDERED A STAT CT W/O CONTRAST, WHICH IS WHERE HE CURRENTLY IS WITH HERMELINDO AGUILAR RN AND THE [facility]. HIS COLOR TO HIS SKIN IN HIS FACE IS BETTER, ALTOUGH HE IS STILL FAIRLY MOTTLED IN HIS LEGS. OCTREOTIDE AND PROTONIX ARE STILL INFUSING ALONG WITH MAINTENENCE FLUIDS AT 75 CC/HR.
--- NOTE | 2018-12-19 07:29 | NUR ---
SHIFT SUMMARY PT IS CURRENTLY ALERT AND ORIENTED X 4. PT HAD APNEIC EPISODE OVERNIGHT, SEE PRIOR NOTE, BUT IS ORIENTED ONCE AGAIN. PT IS IN SINUS TACH, BP HYPERTENSIVE, BUT BECAME HYPOTENSIVE AFTER APNEIC EPISODE. PT IS FLUID RESPONSIVE. CURRENT GTTPS: PROTONIX, OCTREOTIDE, AND NS 75ML/HR. SCOPE IS SCHEDULED FOR APPROX 12 TODAY, DR LUKE WILL BE IN EARLY AM TO SEE PT AND MAKE DECISION. HGB DID COME UP FROM 6.8 - 8. SKIN TEARS VERY EASILY. HIS LEGS ARE EDEMATOUS AND DUSKY. PALPABLE PULSES IN ALL EXTREMETIES. PT HAD ONE SMALL BM LAST NIGHT, IT WAS DARK AND MAROON. NO URINE OUTPUT. BED IS LOW AND LOCKED. CALL LIGHT WITHIN REACH. FAMILY AT BEDSIDE.
[2018-12-19 07:34] LABS: Hematocrit 18.6 % (37.0-53.0)
[2018-12-19 07:41] LABS: Hemoglobin 5.8 g/dL (13.5-17.5)
--- NOTE | 2018-12-19 08:59 | NUR ---
PT ASSESSED AT 0710. PT SLEEPING, LETHARGIC, AWAKENS TO VOICE, ANSWERS QUESTIONS APPROPRIATELY THEN FALLS BACK TO SLEEP. PT DENIES NAUSEA, C/O MILD PAIN 3/10 TO LOWER ABD, AND EPIGASTRIC AREA. C/O 8/10 PAIN TO L HIP (CHRONIC). BP AND HEART RATE STABLE AT O710. 0741- HGB 5.8, BP DROPPED BUT STABLE W MAP>65, HEART RATE INCREASED TO [address] LUKE AND DR TONEY CALLED AND NOTIFIED. 2 UNITS [facility]'S ORDERED. 1ST UNINT INFUSING. DURING THIS PT HAD 450CC DARK MAROON BLOOD PER RECTUM W CLOTS. DR LUKE NOTIFIED. BP DROP AGAIN W MAP >65, HEART RATE UP TO 115. PT FEEL LIGHTHEADED. DR LUKE NOTIFIED. BLOOD INCREASED TO 300CC. CALL OUT TO DR TONEY; POSSIBLE NEED FOR CRITICAL CARE CONSULT; POSSIBLE NEED FOR CENTRAL LINE.
--- NOTE | 2018-12-19 09:19 | NUR ---
DR TONEY GIVEN UPDATE. ORDERS GIVEN TO CONSULT DR ARCE AND START PICC LINE
--- NOTE | 2018-12-19 09:20 | NUR ---
DR ARCE GIVEN UPDATE, WILL SEE PT SHORTLY, PICC TO BE STARTED
--- NOTE | 2018-12-19 09:54 | NUR ---
PT EXPERIENCED 1 MIN SYNCOPE EPISODE, R 130'S, HYPOTENSIVE. DR ARCE AT BEDSIDE. 4TH TOTAL UNIT OF PRBC'S RUNNING NOW, PICC BEING PLACED BY GERTRUDIS LOW. PT REMAINS HYPOTENSIVE; LEVOPHED GTT TO BE STARTED.
[2018-12-19 12:25] LABS: Base Excess Venous -7.1 mmol/L; Hematocrit 20.9 % (37.0-53.0); Hemoglobin 6.6 g/dL (13.5-17.5); PCO2 Venous 45.2 mmHg (38-42); PO2 Venous 122 mmHg (38-42); Platelet Count 110 K/mm3 (150-400)
[2018-12-19 12:27] LABS: pH Blood Venous 7.25 (7.34-7.37)
[2018-12-19 12:33] LABS: Calcium, Blood 7.8 mg/dL (8.5-10.1); Magnesium, Blood 1.2 mg/dL (1.6-2.4)
[2018-12-19 13:00] LABS: International Normalized Ratio 1.45; Prothrombin Time Results 14.9 Sec (9.7-11.5)
--- NOTE | 2018-12-19 14:03 | NUR ---
12/19/18 1403 Jeremi Marie History, Chart, Medications and Allergies reviewed before start of procedure.MONITOR INTACT WITH CONTINUOUS PULSE OXIMETRY AND INTERMITTENT BP.3-LEAD EKG REVIEWED WITH PHYSICIAN PRIOR TO START OF PROCEDURE.Patient confirms NPO status and agrees with scheduled surgery.See Anesthesia record.
--- NOTE | 2018-12-19 15:04 | NUR ---
Pal Spiritual Care intial visit: Asked by staff to be with this family throughout POC conversation. Provided calm presence and gentle prison classification counselor as family determined to allow pt natural . Pt's dtrs tearful and nearly inconsolable. Pt's spouse, Carlene, appropriately tearful. Many family friends present and supportive. Provided prayer before extubation. Stayed with family until Luis Alberto . [facility] has been selected by spouse for arrangements. Family expressed gratitude for compassionate care by [facility] staff.
--- NOTE | 2018-12-19 15:59 | NUR ---
BLOOD PRODUCTS WERE GIVEN BETWEEN 0823 AND 1242; PT RECEIVED 7 UNITS [facility]'S, 4 UNITS FFP, AND 1 PLT PHER DURING THIS TIME. DR ARCE AT BEDSIDE FOR THE MAJORITY OF TIME; AFTER PICC PLACED, FOR ADMINISTRATION OF PRESSORS, DURING EGD PROCEDURE, AND AFTER PROCEDURE ENDED. DR ARCE AND DR LUKE SPOKE WITH FAMILY PRIOR TO A POSSIBLE INTERVENTION W DR MARTIN. FAMILY CHOOSE TO MAKE PT COMFORT CARE. ORDER FOR COMFORT CARE MADE AT 1309. DURING PICC PLACEMENT PT CONTINUED TO PASS LARGE AMTS OF MAROON BLOOD PER RECTUM. RECTAL TUBE PLACED. AT TIME OF THERE WAS 1LITER BLOOD TO RECTAL TUBE. LARGE AMT OF BLOOD WAS ALSO SUCTIONED THROUGH SCOPE DURING EGD. PT INTUBATED PRIOR TO EGD AND JUST AFTER PICC LINE AT 1025. ETOMIDATE 20MG AND LARON 20MG GIVEN IVP PER DR ARCE ORDERS FOR INTUBATION. PROPOFOL WAS INTERMT. STARTED AT LOW DOSES BUT WAS TURNED OFF DUE TO HYPOTENSION. PT HYPOTENSIVE T/O SHIFT BUT DID RESPOND TO FLUIDS/BLOOD AT TIMES. LEVOPHED WAS STARTED AT 1029 AND QUICKLY INCREASED FROM 5MCG TO 30MCG, VASOPRESSIN STARTED AT 1139 AT 0.04MCG, EPI GTT STARTED AT 1217 AND QUICKLY INCRESEASED FROM 2MCG, TO 10MCG, AND FINALLY 20MCG. PRESSORS NOT TURNED OFF UNTIL PT EXTUBATED; TO ENSURE FAMILY WOULD HAVE TIME TO SAY GOOD BUY. DURING PROCEDURE 2AMPS OF BICARB AND 2AMPS CA CLORIDE GIVEN IVP PER ANESTHESIA AND DR ARCE. PT GIVEN MS 4MG AND ATIVAN 2MG AFTER EXTUBATION FOR RESTLESSNESS, GRIMACE, AND POSSIBLE MOANING. FAMILY AT BEDSIDE FOR PASSING. TIME OF 1359. GRIS CALZADA CARE AT BEDSIDE WELL.
--- NOTE | 2018-12-19 16:42 | NUR ---
INDUSTRIAL [employer]ASTE TREATMENT TECHNICIAN WAS CONTACTED AND GIVEN REPORT. OKAY TO HAVE [facility] HOME PICK PT UP. [facility] CALLED AND NOTIFIED. EYE BANK POTENTIALLY MAY WANT EYE DONATION. ICE PACK PLACED ON EYES, HOB ELEVATED TO 30 DEGREES.
== END 2018-12-19 13:59 | DRG 378 ==
LOC: ER 00:06 → ICUE 03:28 → ICUW 03:28 → ICUE 03:33
PROVIDERS: Emergency Medicine; Internal Medicine Gastroenterology; Internal Medicine Pulmonary Disease; ADMIT Internal Medicine
PROC: 3E033XZ Introduction of Vasopressor into Peripheral Vein, Percutaneous Approach (ICD-10-PCS; 2018-12-19)
PROC: 30233N1 Transfusion of Nonautologous Red Blood Cells into Peripheral Vein, Percutaneous Approach (ICD-10-PCS; 2018-12-19)
PROC: 30233R1 Transfusion of Nonautologous Platelets into Peripheral Vein, Percutaneous Approach (ICD-10-PCS; 2018-12-19)
PROC: 30233K1 Transfusion of Nonautologous Frozen Plasma into Peripheral Vein, Percutaneous Approach (ICD-10-PCS; 2018-12-19)
PROC: 0DJ08ZZ Inspection of Upper Intestinal Tract, Via Natural or Artificial Opening Endoscopic (ICD-10-PCS; 2018-12-19)
PROC: 3E0G8GC Introduction of Other Therapeutic Substance into Upper GI, Via Natural or Artificial Opening Endoscopic (ICD-10-PCS; 2018-12-19)
PROC: 0BH17EZ Insertion of Endotracheal Airway into Trachea, Via Natural or Artificial Opening (ICD-10-PCS; principal; 2018-12-19 13:30)
PROC: 5A1935Z Respiratory Ventilation, Less than 24 Consecutive Hours (ICD-10-PCS; 2018-12-19 13:30)
DX: K26.6 Chronic or unspecified duodenal ulcer with both hemorrhage and perforation (principal); D62 Acute posthemorrhagic anemia; Z99.11 Dependence on respirator [ventilator] status; E87.2 Acidosis; F10.20 Alcohol dependence, uncomplicated; Z85.841 Personal history of malignant neoplasm of brain; N18.3 Chronic kidney disease, stage 3 (moderate); R57.8 Other shock; F17.210 Nicotine dependence, cigarettes, uncomplicated; I12.9 Hypertensive chronic kidney disease with stage 1 through stage 4 chronic kidney disease, or unspecified chronic kidney disease; R55 Syncope and collapse
CPT/HCPCS: 31500; 31720; 36415; 36430; 36569; 51702; 70450; 71045; 80047; 80053; 82310; 82803; 82947; 83605; 83735; 85014; 85018; 85025; 85049; 85384; 85610; 85730; 86850; 86900; 86901; 86920; 86923; 93005; 93010; 94002; 96365; 96366; 96375; 99285-25; C1751; C9113; G0480; J0171; J0330; J2060; J2270; J2354; J2405; J2704; J3010; J7030; J7040; J7050; J7060; J7120; P9016; P9035; P9059